=== PATIENT | female | born 1980 | race Caucasian/White ===

== ENCOUNTER 2021-01-11 15:27 | Emergency (ER) | payer MEDICARE, MEDICAID ==
[~2021-01-11] VITALS: Ht 162.6 cm; Wt 86.3 kg
[~2021-01-11 15:27] MED LIST: CLON-528 PO; DOXY-8 PO; LITH300C43 PO; SENN1TAB72 PO; ZIPR80CA2 PO; ZOF4T PO; ZOLP10TA5 PO
[2021-01-11 16:38] LABS: BASOPHILS # (AUTO) 0.1 X10'3 (0-0.2); BASOPHILS % (AUTO) 0.7 % (0-1); EOSINOPHILS # (AUTO) 0.2 X10'3 (0-0.9); EOSINOPHILS % (AUTO) 2.3 % (0-6); HEMATOCRIT 38.8 % (35.0-45.0); HEMOGLOBIN 12.9 g/dl (12.0-16.0); LYMPHOCYTES # (AUTO) 2.5 X10'3 (1.1-4.8); LYMPHOCYTES % (AUTO) 32.6 % (21-51); MEAN CORPUSCULAR HEMOGLOBIN 28.8 PG (27.0-31.0); MEAN CORPUSCULAR HGB CONC 33.3 g/dL (33.0-36.5); MEAN CORPUSCULAR VOLUME 86.4 FL (78-98); MEAN PLATELET VOLUME 7.6 FL (7.4-10.4); MONOCYTES # (AUTO) 0.7 X10'3 (0-0.9); MONOCYTES % (AUTO) 8.9 % (2-12); NEUTROPHILS # (AUTO) 4.3 X10'3 (1.8-7.7); NEUTROPHILS % (AUTO) 55.5 % (42-75); PLATELET COUNT 311 X10'3 (140-440); RED CELL DISTRIBUTION WIDTH 16.6 % (11.5-14.5); WHITE BLOOD COUNT 7.8 X10'3 (4.5-11.0)
[2021-01-11 16:54] LABS: ALANINE AMINOTRANSFERASE 24 U/L (12-78); ALBUMIN 3.8 G/DL (3.4-5.0); ALKALINE PHOSPHATASE 103 IU/L (46-116); ANION GAP 8 (8-16); ASPARTATE AMINO TRANSFERASE 16 U/L (10-37); BILIRUBIN,TOTAL 0.2 MG/DL (0.1-1.0); BLOOD UREA NITROGEN 8 MG/DL (7-18); BUN/CREATININE RATIO 10.7 (6.6-38.0); CALCIUM 9.3 MG/DL (8.5-10.1); CHLORIDE 106 MMOL/L (99-107); CREATININE 0.75 MG/DL (0.40-0.90); ETHANOL < 0.010 GM/DL (0.0-0.010); GLUCOSE 98 MG/DL (70-104); POTASSIUM 4.5 MMOL/L (3.5-5.1); SODIUM 140 MMOL/L (135-145); TOTAL PROTEIN 7.6 G/DL (6.4-8.2); eGFR 85 ML/MIN
[2021-01-11] MEDS ORDERED: OLAN5TAB26 PO (17:19)
[2021-01-11] MEDS ORDERED: FAMO20TA8 PO (17:19)
[2021-01-11] MEDS ORDERED: ZIPR40CA14 PO (17:19)
[2021-01-11] MEDS ORDERED: LEVO88TA7 PO (17:19)
[2021-01-11] MEDS ORDERED: LEVE750T PO (17:19)
[2021-01-11] MEDS ORDERED: CLON0.1T2 PO (17:23)
[2021-01-11] MEDS ORDERED: BUSP-29 PO (17:23)
[2021-01-11] MEDS ORDERED: BUSP15TA7 PO (17:23)
[2021-01-11 17:26] LABS: URINE HCG NEGATIVE (NEG)
[2021-01-11 17:28] LABS: CLARITY,URINE CLEAR (Clear); COLOR,URINE YELLOW (Yellow); GLUCOSE, URINE NEGATIVE (Neg); KETONES,URINE TRACE mg/dl (Neg); LEUKOCYTE ESTERASE ,URINE NEGATIVE (Neg); NITRITES, URINE NEGATIVE (Neg); OCCULT BLOOD,URINE NEGATIVE (Neg); PH,URINE 5.5 (4.8-8.0); PROTEIN,URINE NEGATIVE (Neg)
[2021-01-11 17:39] LABS: UA COLLECTION TYPE CLN CATCH MIDSTREAM
[2021-01-11 17:42] LABS: URINE AMPHETAMINE SCREEN NEGATIVE (Neg); URINE BARBITUATE SCREEN NEGATIVE (Neg); URINE BENZODIAZEPINES SCREEN NEGATIVE (Neg); URINE CANNABINOID SCREEN NEGATIVE (Neg); URINE COCAINE SCREEN NEGATIVE (Neg); URINE METHADONE SCREEN NEGATIVE (Neg); URINE OPIATE SCREEN NEGATIVE (Neg); URINE PHENCYCLIDINE SCREEN NEGATIVE (Neg)
--- NOTE | 2021-01-11 18:01 | NUR ---
FAXED PACKET TO [facility]
--- NOTE | 2021-01-11 18:52 | NUR ---
The patient was moved to bed 21 from the main ER. She is a [facility] client from [facility] who was directed to come here. She stated that she is hearing constant voices telling her to harm herself and others. She has a history of schizophrenia, borderline personality disorder, and bipolar disorder. She is cooperative but histrionic. She lives in a board and care in [place].
[2021-01-11] MEDS: ziprasidone 20mg capsule PO SCH (19:15)
[2021-01-11] MEDS: levetiracetam 250mg tablet PO SCH (19:15)
--- NOTE | 2021-01-11 19:32 | NUR ---
PT IS AWAKE STANDING AT BEDSIDE STARING OUT ACROSS THE UNIT. PT STATES SHE IS HEARING VIOCES AND IS GIVEN HS MEDICATIONS. PT ENCOURAGED TO SIT DOWN AND HAVE A SNACK, WHICH SHE DOES.
--- NOTE | 2021-01-11 20:14 | NUR ---
The patient reported to [facility] optical worker that she would attempt to kill herself in the bathroom so staff will have have to be with her in the bathroom.
[2021-01-11] MEDS: cloNIDine 0.1 mg tablet PO SCH (20:23)
[2021-01-11] MEDS ORDERED: OLANZAPINE 5 MG TABLET PO SCH (21:00)
[2021-01-11] MEDS ORDERED: busPIRone 15mg tablet PO SCH (21:00)
[2021-01-11] MEDS ORDERED: olanzapine 10mg tablet PO ONE (21:25)
[2021-01-11] MEDS ORDERED: OLANZAPINE 5 MG TABLET PO ONE (21:30)
--- NOTE | 2021-01-11 21:46 | NUR ---
PT STATES SHE IS UNABLE TO FALL ASLEEP AND IS ASKING FOR SOMETHING TO HELP. CONSULTED, 5MG ZYPREXA PO ORDERED AND GIVEN WITH GOOD EFFECT.
--- NOTE | 2021-01-12 | NUR ---
PT SLEEPING ON BACK RR 16
--- NOTE | 2021-01-12 02:04 | NUR ---
PT ON L SIDE, RR 14 EVEN AND UNLABORED
--- NOTE | 2021-01-12 04:49 | NUR ---
PT RESTING QUIETLY IN BED RR 16
--- NOTE | 2021-01-12 06:36 | NUR ---
Patient laying on her left side sleeping. Respirations are even and unlabored.
[2021-01-12] MEDS ORDERED: levoTHYROXINE 88mcg tablet PO SCH (08:00)
[2021-01-12] MEDS ORDERED: famotidine 20mg tablet PO SCH (08:00)
[2021-01-12] MEDS ORDERED: busPIRone 5mg tablet PO SCH (08:00)
[2021-01-12] MEDS: ziprasidone 20mg capsule PO SCH (08:51)
[2021-01-12] MEDS: cloNIDine 0.1 mg tablet PO SCH (08:51)
[2021-01-12] MEDS: levetiracetam 250mg tablet PO SCH (08:51)
--- NOTE | 2021-01-12 09:51 | NUR ---
Patient sleeping on right side in bed. Respirations are even and unlabored.
--- NOTE | 2021-01-12 11:49 | NUR ---
Pt. is being discharged to [facility] escorted by Jurgen and it security project manager.
[2021-01-12 12:29] VITALS: BP 134/90
[2021-01-12] MEDS ORDERED: FAMO20TA8 PO (17:34)
[2021-01-12] MEDS ORDERED: PALI6TAB PO (17:34)
[2021-01-12] MEDS ORDERED: PALI9TAB PO (17:34)
== END 2021-01-12 12:33 ==
LOC: ER 15:28
DX: R45.851 Suicidal ideations (principal); R45.850 Homicidal ideations; F31.9 Bipolar disorder, unspecified; F20.9 Schizophrenia, unspecified; Z98.51 Tubal ligation status; Z88.2 Allergy status to sulfonamides; Z88.0 Allergy status to penicillin; Z88.5 Allergy status to narcotic agent; Z88.1 Allergy status to other antibiotic agents; Z91.040 Latex allergy status; Z91.013 Allergy to seafood; Z91.018 Allergy to other foods; Z88.8 Allergy status to other drugs, medicaments and biological substances; Z79.899 Other long term (current) drug therapy
CPT/HCPCS: 36415; 80053; 80305; 80320; 81003; 81025; 85025; 87426; 99285

== ENCOUNTER 2024-07-07 10:32 | Emergency (ER) | payer BC, MEDICAID ==
[~2024-07-07] VITALS: Ht 162.6 cm; Wt 85.9 kg
[~2024-07-07 10:32] MED LIST changes: +BENZ1TAB78 PO; +BUSP-29 PO; +BUSP15TA7 PO; -CLON-528 PO; +CLON0.1T2 PO; +CLOZ25TA12 PO; -DOXY-8 PO; +FAMO20TA8 PO; +LEVE750T PO; +LEVO88TA7 PO; -LITH300C43 PO; +NICO-668 BC; +NICO-687 TD; +PRAZ1CAP5 PO; -SENN1TAB72 PO; -ZIPR80CA2 PO; -ZOF4T PO; -ZOLP10TA5 PO
[2024-07-07 11:16] LABS: BASOPHILS % (AUTO) 0.6 % (0-1); EOSINOPHILS % (AUTO) 0.9 % (0-6); HEMATOCRIT 42.2 % (35.0-45.0); HEMOGLOBIN 14.1 g/dl (12.0-16.0); LYMPHOCYTES # (AUTO) 1.7 X10'3 (1.1-4.8); LYMPHOCYTES % (AUTO) 34.6 % (21-51); MEAN CORPUSCULAR HEMOGLOBIN 31.5 PG (27.0-31.0); MEAN CORPUSCULAR HGB CONC 33.5 g/dL (33.0-36.5); MEAN CORPUSCULAR VOLUME 94.1 FL (78-98); MEAN PLATELET VOLUME 7.8 FL (7.4-10.4); MONOCYTES # (AUTO) 0.4 X10'3 (0-0.9); MONOCYTES % (AUTO) 7.8 % (2-12); NEUTROPHILS # (AUTO) 2.8 X10'3 (1.8-7.7); NEUTROPHILS % (AUTO) 56.1 % (42-75); PLATELET COUNT 255 X10'3 (140-440); RED BLOOD COUNT 4.48 X10'6 (4.20-5.60); RED CELL DISTRIBUTION WIDTH 13.6 % (11.5-14.5); WHITE BLOOD COUNT 4.9 X10'3 (4.5-11.0)
[2024-07-07 11:19] LABS: URINE HCG NEGATIVE (NEG)
[2024-07-07 11:29] LABS: ALANINE AMINOTRANSFERASE 33 U/L (12-78); ALBUMIN 3.8 G/DL (3.4-5.0); ALBUMIN/GLOBULIN RATIO 1.1 (1.1-1.5); ALKALINE PHOSPHATASE 93 IU/L (46-116); ANION GAP 8 (8-16); ASPARTATE AMINO TRANSFERASE 23 U/L (10-37); BILIRUBIN,TOTAL 0.3 MG/DL (0.1-1.0); BLOOD UREA NITROGEN 10 MG/DL (7-18); BUN/CREATININE RATIO 11.6 (10.0-20.0); CALCIUM 9.2 MG/DL (8.5-10.1); CHLORIDE 106 MMOL/L (99-107); CREATININE 0.86 MG/DL (0.40-0.90); GLUCOSE 135 MG/DL (70-104); LIPASE 45 U/L (16-77); POTASSIUM 4.3 MMOL/L (3.5-5.1); SODIUM 139 MMOL/L (135-145); TOTAL CARBON DIOXIDE 25.3 MMOL/L (24-32); TOTAL PROTEIN 7.4 G/DL (6.4-8.2); eCRCL 71 ML/MIN; eGFR 71 ML/MIN
[2024-07-07 11:50] LABS: BILIRUBIN,URINE NEGATIVE (Neg); CLARITY,URINE SLIGHTLY CLOUDY (Clear); COLOR,URINE YELLOW (Yellow); GLUCOSE, URINE NEGATIVE (Neg); KETONES,URINE NEGATIVE (Neg); LEUKOCYTE ESTERASE ,URINE NEGATIVE (Neg); NITRITES, URINE NEGATIVE (Neg); OCCULT BLOOD,URINE NEGATIVE (Neg); PROTEIN,URINE NEGATIVE (Neg); UROBILINOGEN,URINE 0.2 E.U/dL (0.2-1.0)
[2024-07-07 11:56] LABS: UA COLLECTION TYPE CLN CATCH MIDSTREAM
[2024-07-07 11:57] LABS: BACTERIA,URINE 3+ /HPF (Neg); SQUAMOUS EPITHELIAL CELL,UR MANY /LPF (FEW)
[2024-07-07 11:58] LABS: RBC,URINE 0-2 /HPF (0-2)
[2024-07-07] MEDS ORDERED: metoclopramide 5 mg/ml inj IV ONE (14:15)
[2024-07-07] MEDS ORDERED: morphine 2 MG/ML inj. syringe IV ONE (14:15)
[2024-07-07] MEDS ORDERED: ondansetron/PF 4mg/2ml inj IV ONE (14:45)
[2024-07-07] MEDS: normal saline 1000ml 1,000 ML IV ONE (15:00)
[2024-07-07] MEDS: ketorolac trometh 15mg/ml vial 15 MG/ML ML IV ONE (15:06)
[2024-07-07] MEDS: metoclopramide 5 mg/ml inj IV ONE (15:39)
[2024-07-07] MEDS: morphine 4 MG/ML inj SYRINge IV ONE (17:11)
[2024-07-07 18:28] VITALS: BP 116/64; PULSE 84; RESP 16; TEMP 97.8; O2SAT 98
== END 2024-07-07 18:30 | disposition home or self-care (01) ==
LOC: ER 10:32
DX: R10.84 Generalized abdominal pain (principal); F20.9 Schizophrenia, unspecified; F31.9 Bipolar disorder, unspecified; Z88.2 Allergy status to sulfonamides; Z88.6 Allergy status to analgesic agent; Z88.5 Allergy status to narcotic agent; Z88.0 Allergy status to penicillin; Z88.1 Allergy status to other antibiotic agents; Z91.040 Latex allergy status; Z98.51 Tubal ligation status
CPT/HCPCS: 36415; 74176; 80053; 81001; 81025; 83690; 85025; 96361; 96374; 96375; 99285; J1885; J2270; J2765; J7030

== ENCOUNTER 2024-11-19 12:39 | Emergency (ER) | payer MEDICARE, MEDICAID ==
[~2024-11-19] VITALS: Ht 162.6 cm; Wt 88.6 kg
[~2024-11-19 12:39] MED LIST changes: +DICY10CA88 PO; +DOXY100C43 PO; +ONDA-243 PO
[2024-11-19 13:09] VITALS: BP 106/68; PULSE 69; RESP 18; TEMP 97.6; O2SAT 95
[2024-11-20] MEDS ORDERED: FLUC100T PO (11:15)
== END 2024-11-19 15:48 | disposition left against medical advice (07) ==
LOC: ER 12:39
DX: R11.0 Nausea (principal); Z88.0 Allergy status to penicillin; Z91.010 Allergy to peanuts; Z88.2 Allergy status to sulfonamides; Z91.040 Latex allergy status; Z91.018 Allergy to other foods; Z91.011 Allergy to milk products; Z91.013 Allergy to seafood; Z88.8 Allergy status to other drugs, medicaments and biological substances; Z53.21 Procedure and treatment not carried out due to patient leaving prior to being seen by health care provider

== ENCOUNTER 2024-11-20 07:36 | Emergency (ER) | payer MEDICARE, MEDICAID ==
[~2024-11-20] VITALS: Ht 162.6 cm; Wt 87.5 kg
[2024-11-20 07:41] VITALS: BP 113/75; PULSE 84; RESP 16; O2SAT 96
[2024-11-20] MEDS: fluconazole 100mg tablet PO ONE (08:14)
[2024-11-20 08:37] LABS: BASOPHILS % (AUTO) 0.7 % (0-1); EOSINOPHILS # (AUTO) 0.1 X10'3 (0-0.9); EOSINOPHILS % (AUTO) 2.1 % (0-6); HEMATOCRIT 42.5 % (35.0-45.0); HEMOGLOBIN 14.5 g/dl (12.0-16.0); LYMPHOCYTES # (AUTO) 1.6 X10'3 (1.1-4.8); LYMPHOCYTES % (AUTO) 24.3 % (21-51); MEAN CORPUSCULAR HGB CONC 34.1 g/dL (33.0-36.5); MEAN CORPUSCULAR VOLUME 93.9 FL (78-98); MEAN PLATELET VOLUME 8.2 FL (7.4-10.4); MONOCYTES # (AUTO) 0.5 X10'3 (0-0.9); MONOCYTES % (AUTO) 7.5 % (2-12); NEUTROPHILS # (AUTO) 4.3 X10'3 (1.8-7.7); NEUTROPHILS % (AUTO) 65.4 % (42-75); PLATELET COUNT 207 X10'3 (140-440); RED BLOOD COUNT 4.53 X10'6 (4.20-5.60); WHITE BLOOD COUNT 6.6 X10'3 (4.5-11.0)
[2024-11-20 08:54] LABS: STREP A SCREEN NEGATIVE (Neg)
[2024-11-20 08:55] LABS: ALANINE AMINOTRANSFERASE 17 U/L (12-78); ALBUMIN 3.8 G/DL (3.4-5.0); ALKALINE PHOSPHATASE 93 IU/L (46-116); ANION GAP 10 (8-16); ASPARTATE AMINO TRANSFERASE 16 U/L (10-37); BILIRUBIN,TOTAL 0.3 MG/DL (0.1-1.0); BLOOD UREA NITROGEN 10 MG/DL (7-18); BUN/CREATININE RATIO 14.5 (10.0-20.0); CALCIUM 9.4 MG/DL (8.5-10.1); CHLORIDE 106 MMOL/L (99-107); CREATININE 0.69 MG/DL (0.40-0.90); GLUCOSE 124 MG/DL (70-104); SODIUM 140 MMOL/L (135-145); TOTAL CARBON DIOXIDE 24.4 MMOL/L (24-32); TOTAL PROTEIN 7.5 G/DL (6.4-8.2); eCRCL 89 ML/MIN; eGFR > 90 ML/MIN
[2024-11-20 09:50] LABS: HIV ANTIBODY 1&2 RAPID NON-REACTIVE (Neg)
[2024-11-20] MEDS ORDERED: FLUC100T PO (11:15)
[2024-11-20 11:22] VITALS: TEMP 97.9
== END 2024-11-20 11:27 | disposition home or self-care (01) ==
LOC: ER 07:37
DX: B37.0 Candidal stomatitis (principal); B37.81 Candidal esophagitis; F20.9 Schizophrenia, unspecified; F31.9 Bipolar disorder, unspecified; Z88.0 Allergy status to penicillin; Z88.2 Allergy status to sulfonamides; Z88.5 Allergy status to narcotic agent; Z88.6 Allergy status to analgesic agent; Z88.1 Allergy status to other antibiotic agents; Z20.822 Contact with and (suspected) exposure to COVID-19; Z98.51 Tubal ligation status
CPT/HCPCS: 36415; 80053; 85025; 86703; 87081; 87502; 87503; 87811; 87880; 99283

== ENCOUNTER 2024-11-26 13:09 | Emergency (ER) | payer MEDICARE, MEDICAID ==
[~2024-11-26] VITALS: Ht 162.6 cm; Wt 80.2 kg
[~2024-11-26 13:09] MED LIST changes: +FLUC100T PO
[2024-11-26 13:19] VITALS: BP 120/72; PULSE 62; RESP 18; TEMP 97.8; O2SAT 97
[2024-11-26] MEDS ORDERED: OLAN1TAB7 PO (14:02)
== END 2024-11-26 14:08 | disposition home or self-care (01) ==
LOC: ER 13:09
DX: Z00.00 Encounter for general adult medical examination without abnormal findings (principal); Z76.0 Encounter for issue of repeat prescription; F20.9 Schizophrenia, unspecified; F31.9 Bipolar disorder, unspecified; Z88.0 Allergy status to penicillin; Z88.1 Allergy status to other antibiotic agents; Z88.2 Allergy status to sulfonamides; Z88.3 Allergy status to other anti-infective agents; Z88.5 Allergy status to narcotic agent; Z88.6 Allergy status to analgesic agent; Z98.51 Tubal ligation status
CPT/HCPCS: 99281

== ENCOUNTER 2025-01-24 07:35 | Inpatient (IN) | payer MEDICARE, MEDICAID ==
[~2025-01-24] VITALS: Ht 162.6 cm; Wt 84.7 kg
[~2025-01-24 07:35] MED LIST changes: -FLUC100T PO; +OLAN1TAB7 PO
[2025-01-24] MEDS ORDERED: loperamide 2mg capsule PO PRN (09:35)
[2025-01-24] MEDS ORDERED: acetaminophen 325mg tablet PO PRN (09:35)
[2025-01-24] MEDS ORDERED: mag hydrox/Alum hydrox/simeth 30ml oral suspension PO PRN (09:35)
[2025-01-24 12:04] VITALS: BP 110/59; PULSE 50; RESP 16; TEMP 97.2; O2SAT 97
[2025-01-24] MEDS ORDERED: BUSP5TAB3 PO (12:06)
[2025-01-24] MEDS ORDERED: LEVO50TA PO (12:06)
[2025-01-24] MEDS ORDERED: LURA40TA2 PO ×2 (12:06→12:42)
[2025-01-24] MEDS ORDERED: PRAZ5CAP2 PO (12:06)
[2025-01-24] MEDS ORDERED: RISP1TAB69 PO (12:06)
[2025-01-24] MEDS: LORazepam 1 MG tablet PO ONE (13:24)
[2025-01-24] MEDS: haloperidol 5mg tablet PO ONE (13:24)
[2025-01-24] MEDS: diphenhydrAMINE 25mg capsule PO ONE (13:26)
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
[2025-01-24 18:24] VITALS: RESP 14; O2SAT 97
[2025-01-24 19:15] VITALS: RESP 14; O2SAT 97
[2025-01-24 19:52] VITALS: RESP 16
[2025-01-24] MEDS: prazosin 5mg capsule PO SCH (21:00)
[2025-01-24] MEDS: busPIRone 5mg tablet PO SCH (21:08)
[2025-01-24] MEDS: levetiracetam 250mg tablet PO SCH (21:08)
[2025-01-24] MEDS: risperiDONE 0.5mg tablet PO SCH (21:09)
[2025-01-24] MEDS: lurasidone 20mg tablet PO SCH (21:09)
[2025-01-25 07:31] VITALS: BP 111/54; PULSE 62; RESP 15; TEMP 96.8; O2SAT 97
[2025-01-25 08:00] LABS: BASOPHILS # (AUTO) 0.1 X10'3 (0-0.2); BASOPHILS % (AUTO) 1.1 % (0-1); EOSINOPHILS # (AUTO) 0.1 X10'3 (0-0.9); EOSINOPHILS % (AUTO) 2.7 % (0-6); HEMATOCRIT 39.7 % (35.0-45.0); HEMOGLOBIN 13.5 g/dl (12.0-16.0); LYMPHOCYTES # (AUTO) 2.4 X10'3 (1.1-4.8); LYMPHOCYTES % (AUTO) 47.5 % (21-51); MEAN CORPUSCULAR HEMOGLOBIN 31.6 PG (27.0-31.0); MEAN CORPUSCULAR VOLUME 92.8 FL (78-98); MEAN PLATELET VOLUME 8.1 FL (7.4-10.4); MONOCYTES # (AUTO) 0.4 X10'3 (0-0.9); MONOCYTES % (AUTO) 8.8 % (2-12); NEUTROPHILS % (AUTO) 39.9 % (42-75); PLATELET COUNT 220 X10'3 (140-440); RED BLOOD COUNT 4.28 X10'6 (4.20-5.60); RED CELL DISTRIBUTION WIDTH 13.4 % (11.5-14.5)
[2025-01-25 08:31] LABS: ALANINE AMINOTRANSFERASE 18 U/L (12-78); ALBUMIN 3.3 G/DL (3.4-5.0); ALBUMIN/GLOBULIN RATIO 1.1 (1.1-1.5); ALKALINE PHOSPHATASE 84 IU/L (46-116); ANION GAP 7 (8-16); ASPARTATE AMINO TRANSFERASE 12 U/L (10-37); BILIRUBIN,TOTAL 0.4 MG/DL (0.1-1.0); BLOOD UREA NITROGEN 11 MG/DL (7-18); BUN/CREATININE RATIO 14.9 (10.0-20.0); CALCIUM 8.7 MG/DL (8.5-10.1); CHLORIDE 109 MMOL/L (99-107); CHOL/HDL RATIO 3.4 (0.00-4.99); CHOLESTEROL 207 MG/DL (0-200); CREATININE 0.74 MG/DL (0.40-0.90); GLUCOSE 95 MG/DL (70-104); HDL CHOLESTEROL 61 MG/DL (35-60); LDL CHOLESTEROL 124 MG/DL (50-100); POTASSIUM 4.3 MMOL/L (3.5-5.1); SODIUM 142 MMOL/L (135-145); TOTAL CARBON DIOXIDE 25.6 MMOL/L (24-32); TOTAL PROTEIN 6.2 G/DL (6.4-8.2); TRIGLYCERIDES 70 MG/DL (20-135); eCRCL 82 ML/MIN; eGFR 84 ML/MIN
[2025-01-25] MEDS: levoTHYROXINE 25mcg tablet PO SCH (09:23)
[2025-01-25] MEDS: magnesium hydroxide 30ml (MOM) UD suspension PO PRN (09:30)
[2025-01-25] MEDS: acetaminophen 325mg tablet PO PRN (09:32)
[2025-01-25 09:35] VITALS: RESP 15; O2SAT 97
[2025-01-25 09:39] LABS: HEMOGLOBIN A1C 5.1 % (4.5-6.2)
[2025-01-25] MEDS: nicotine 14mg patch - 24hr TD ONE (13:05)
--- NOTE | 2025-01-25 13:09 | HISTORY AND PHYSICAL ---
History & Physical Providers to CC ~ History of Present Illness Reason for Admit\Complaint: SI, bipolar disorder History of Present Illness Iveth Lindsey is a 45-year-old female with a past medical history of schizophrenia, bipolar disorder, developmental delay, PTSD, seizure disorder who was admitted to [facility] for management of suicidal ideation/attempt. Patient denies HI, prior SD/CAD, CVA, cardiac arrhythmia, DVT/PE, or GIB. Patient reports dysuria x2 days and on-going suicidal ideation but denies chest pain, palpitations, shortness of breath, abdominal pain, n/v/d. Allergies: Coded Allergies: Sulfa (Sulfonamide Antibiotics) (Verified Allergy, Severe, 11/26/24) kiwi (Verified Allergy, Severe, anaphylaxis, 11/19/24) loratadine (Verified Allergy, Severe, anaphylaxis, 11/19/24) shellfish derived (Verified Allergy, Severe, anaphylaxis, 11/19/24) strawberry (Verified Allergy, Severe, anaphylaxis, 11/19/24) codeine (Verified Allergy, Intermediate, Hives, 01/24/25) divalproex sodium (Verified Allergy, Intermediate, pruritus, 11/19/24) lactose (Verified Allergy, Intermediate, Diarrhea, 11/19/24) nitrofurantoin (Verified Allergy, Intermediate, Rash, 01/24/25) ondansetron (Verified Allergy, Intermediate, Rash, 01/24/25) Penicillins (Verified Allergy, Unknown, 11/19/24) PT TOLERATED CEFTRIAXONE 01/2013 hydroxyzine (Verified Allergy, Unknown, 11/19/24) latex (Verified Allergy, Unknown, 11/19/24) levofloxacin (Verified Allergy, Unknown, 11/19/24) Uncoded Allergies: ASA (Allergy, Severe, Anaphylaxis, 01/24/25) MILK PRODUCTS (Allergy, Unknown, 01/12/21) tape, adhesive (Adverse Reaction, Unknown, 01/24/25) Home Medications Home Medications Active Reported Latuda (Lurasidone HCl) 40 Mg Tablet 1 Tab PO QPM Buspar* (Buspirone HCl) 5 Mg Tablet 1 Tab PO TID Risperidone 1 Mg Tab.rapdis 1 Tab PO BID Prazosin HCl 5 Mg Capsule 3 Cap PO HS Synthroid (Levothyroxine Sodium) 50 Mcg Tablet 1 Tab PO DAILY Levetiracetam 750 Mg Tablet 1 Tab PO BID Past Medical History Past Medical History Bipolar disorder Developmental delay Seizure disorder Scoliosis Hirsutism Past Surgical History Surgical History Comment Tubal ligation Family History Family History: Developmental delay FAMILY/OTHER, Onset:Pre- FH: COPD (chronic obstructive pulmonary disease) FH: asthma MOTHER, Onset:Unknown FH: diabetes mellitus MOTHER, Onset:Unknown GRANDFATHER OR GRANDMOTHER, Onset:Unknown FH: glaucoma MOTHER, Onset:Unknown GRANDFATHER OR GRANDMOTHER, Onset:Unknown FH: hypercholesterolemia FAMILY/OTHER, Onset:Unknown FH: kidney failure MOTHER, Onset:50's - 60 Heart murmur MOTHER, Onset:Unknown Paranoid schizophrenia MOTHER, Onset:Pre- GRANDFATHER OR GRANDMOTHER, Onset:Pre- Suicide attempt MOTHER, Onset:15's - 20 Past Social History Social History Comment Alcohol: Denies Tobacco: Current smoker, 32-pack year history Illicit drug use: Denies Living situation: Lives at correction ROS ROS Other than positives in HPI, all 14 review of systems are negative Exam Vitals: Vital Signs Date Time Temp Pulse Resp B/P (MAP) Pulse Ox O2 Delivery O2 Flow Rate FiO2 01/25/25 09:35 15 97 Room Air 01/25/25 07:31 96.8 62 111/54 (73) General: A&Ox 3, NAD HEENT: Normocephalic, PERRLA, poor dentition Neck: Supple, trachea midline, no JVD Chest: Clear to auscultation bilaterally Cardiovascular: RRR, S1&S2 Abdomen: Soft and nontender Extremities: No cyanosis/clubbing/or edema Central Nervous System: CN II-XII intact, no focal deficits Musculoskeletal: No paraspinal muscle tenderness, no muscle spasm Skin: Warm and intact Diagnostic Data Last Recorded Lab Results: 01/25/25 0732 01/25/25 0732 Counseling Services Smoking & Tobacco Cessation: > 10 Minutes Additional Plan # Suicide ideation # Bipolar disorder # Schizophrenia # PTSD -continue management per psychiatry service -vss, labs including UA unremarkable # HLD, ASCVD 2.0% -heart healthy diet # Hx Hirsutism -follow testosterone, DHEA sul, LH/FSH, cortisol # Hypothyroidism -TSH/T4 wnl; continue home levothyroxine # Seizure disorder -continue home Keppra, follow serum level # Nicotine dependence -nicotine patch # Hx tubal ligation Hospitalist team will continue to follow for patient's medical needs I spent a total of 16 minutes on smoking cessation education. I provided extensive counseling regarding smoking cessation. Date of Service: January 25, 2025 Billing Provider: ANNETTE ANDERSEN Common Visit Codes: [id number] INP/OBS CARE (HIGH) Secondary Visit Codes: [id number] CHNG SMOKING >10MIN NANETTE ANDERSEN January 25, 2025 13:09
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
[2025-01-25] MEDS: busPIRone 5mg tablet PO SCH ×2 (14:49→20:54)
[2025-01-25] MEDS: busPIRone 5mg tablet PO ONE (14:55)
[2025-01-25 15:35] LABS: BILIRUBIN,URINE NEGATIVE (Neg); CLARITY,URINE CLEAR (Clear); COLOR,URINE YELLOW (Yellow); GLUCOSE, URINE NEGATIVE (Neg); KETONES,URINE NEGATIVE (Neg); LEUKOCYTE ESTERASE ,URINE NEGATIVE (Neg); NITRITES, URINE NEGATIVE (Neg); OCCULT BLOOD,URINE NEGATIVE (Neg); PROTEIN,URINE NEGATIVE (Neg); UROBILINOGEN,URINE 0.2 E.U/dL (0.2-1.0)
[2025-01-25 15:40] LABS: UA COLLECTION TYPE CLN CATCH MIDSTREAM
[2025-01-25 15:42] LABS: FREE T4 (FREE THYROXINE) 1.04 NG/DL (0.73-1.40); THYROID STIMULATING HORMONE 0.55 ulU/ml (0.34-4.50)
[2025-01-25 19:00] VITALS: BP 125/74; PULSE 80; RESP 16; TEMP 97.4; O2SAT 97
[2025-01-25] MEDS ORDERED: levetiracetam 250mg tablet PO SCH (20:00)
[2025-01-25] MEDS: risperiDONE 2mg tablet PO SCH (20:54)
[2025-01-25] MEDS: traZODone 50mg tablet PO PRN (20:55)
[2025-01-26 07:00] VITALS: BP 110/65; PULSE 72; RESP 16; TEMP 97; O2SAT 98
[2025-01-26] MEDS ORDERED: levoTHYROXINE 25mcg tablet PO SCH (07:00)
[2025-01-26 07:45] VITALS: RESP 15; O2SAT 97
[2025-01-26] MEDS: nicotine 14mg patch - 24hr TD SCH (07:47)
[2025-01-26] MEDS: chlorproMAZINE 25mg tablet PO PRN (10:14)
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
[2025-01-26] MEDS: diphenhydrAMINE 25mg capsule PO ONE (11:43)
[2025-01-26 19:00] VITALS: RESP 14; O2SAT 97
[2025-01-26 20:00] VITALS: BP 118/66; PULSE 60; RESP 14; TEMP 97.1; O2SAT 97
[2025-01-26] MEDS: lurasidone 20mg tablet PO SCH (20:09)
[2025-01-27 07:00] VITALS: RESP 16; O2SAT 95
[2025-01-27 07:19] VITALS: BP 112/60; PULSE 66; RESP 16; TEMP 97.9; O2SAT 95
--- NOTE | 2025-01-27 09:53 | PROGRESS NOTE ---
Daily Progress Note Providers to CC No new complaint today, resting comfortably in the bed ~ Central Line/PICC still needed: No Renteria-Non Protocol Renteria Indications Met/Not Met: F/C Indications Not Met Antibiotic Timeout Antibiotic Ordered?: No MRSA Education MRSA Education Provided to pt: No Subjective As above Objective Vital Signs Date Time Temp Pulse Resp B/P (MAP) Pulse Ox O2 Delivery O2 Flow Rate FiO2 01/27/25 07:19 97.9 66 16 112/60 (77) 95 Room Air Vital signs, stable ,afebrile. Pulse Oximetry reflects adequate oxygenation. BMI is thirty-two, weight 84 kg General: well developed, well nourished. Awake , alert, and oriented x4, resting comfortably in the bed, in no acute distress . Skin: Warm, dry, no pallor, no rash or petechiae. HEENT: Atraumatic, normocephalic, EOMI, anicteric sclera B; pink conjunctiva; PERRLA, normal oropharynx, moist oral and nasal mucosa. Tympanic membrane , nose , throat clear. Neck: Trachea midline. Supple, full range of motion, no JVD, bruit , hepatojugular reflex , lymphadenopathy or masses, or other lesions Cardiac: Regular rhythm, regular rate no murmurs, rubs, or gallops. Normal S1 and S2, no S3 noticed. PMI is normal. Respiratory: Equal breath sounds bilaterally, no tachypnea; lungs clear to auscultation bilaterally, no wheezing ,rub or rales, or crackles. Chest wall is symmetric and without deformity. No signs of trauma. Chest wall is nontender. No signs of respiratory distress. Resonance is normal upon percussion bilaterally. Gastrointestinal: Abdomen symmetric, non-distended, soft, non-tender, normal bowel sounds x4 quadrant, normoactive, no hepatosplenomegaly , no masses , no bruit, no flank pain bilaterally. No voluntary guarding, rebound, or rigidity. No tenderness to percussion. No pulsatile masses. Equal femoral pulses. No Willis's sign or McBurney point tenderness. Back; no CVA tenderness bilaterally, no deformities. Neck and back are without deformity as well. No tenderness noted on palpation of the spinous processes. Spinous processes are midline. Cervical, thoracic, and lumbar paraspinal muscles are not tender and are without spasm. Musculoskeletal: Extremities, normal range of motion, non-tender, muscle strength 5/5 x 4. Negative Homans signs bilaterally on lower extremity. Distal pulses full symmetrical, no clubbing, cyanosis , edema. Neurological: Speech is clear, alert, and oriented x 4. No motor or sensory deficit, deep tendon reflexes normal, cerebellar intact. Cranial nerves II-XII intact. Psych: Alert and or appropriate, normal affect. Vascular: Good distal pulses, which are equal x4; capillary refill less than 2 seconds. Lymphatic, no lymphadenopathy. Result Diagram: 01/25/2573101/25/25731 Problem\Assessment\Plan Assessment/ Plan # Suicide ideation # Bipolar disorder # Schizophrenia # PTSD -continue management per psychiatry service -vss, labs including UA unremarkable # HLD, ASCVD 2.0% -heart healthy diet # Hx Hirsutism -follow testosterone, DHEA sul, LH/FSH, cortisol # Hypothyroidism -TSH/T4 wnl; continue home levothyroxine # Seizure disorder -continue home Keppra, follow serum level # Nicotine dependence -nicotine patch # Hx tubal ligation Hospitalist team we will follow patient per hospital protocol Sepsis Screening Reassessment Date: January 27, 2025 Date of Service: January 27, 2025 Billing Provider: LASHAE POWERS MD Common Visit Codes: [id number] INP/OBS CARE(LOW) LASHAE POWERS MD January 27, 2025 09:53
[2025-01-27 11:14] LABS: FSH, SERUM 40.7 mIU/mL (.); LUTEINIZING HORMONE 34.3 mIU/mL (.)
[2025-01-27] MEDS: diphenhydrAMINE 25mg capsule PO PRN (11:26)
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
[2025-01-27 19:40] VITALS: RESP 18; O2SAT 97
[2025-01-27 20:00] VITALS: BP 139/64; PULSE 58; RESP 18; TEMP 97.5; O2SAT 97
[2025-01-28 07:01] VITALS: BP 92/61; PULSE 73; RESP 18; TEMP 97.1; O2SAT 97
[2025-01-28 07:44] VITALS: RESP 18; O2SAT 97
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
[2025-01-28 19:00] VITALS: RESP 18; O2SAT 98
[2025-01-28 19:49] VITALS: BP 115/71; PULSE 76; RESP 18; TEMP 97.7; O2SAT 98
[2025-01-29 07:00] VITALS: BP 107/63; PULSE 68; RESP 16; TEMP 96.9; O2SAT 97
[2025-01-29 10:00] VITALS: RESP 16; O2SAT 97
[2025-01-29] MEDS: lactose-reduced food (Ensure Enlive) - 237ml bottle PO SCH (12:32)
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
[2025-01-29 19:00] VITALS: RESP 16; O2SAT 97
--- NOTE | 2025-01-29 19:07 | PROGRESS NOTE- Residence ---
Progress Note - Resident Providers to CC Resident Creating Document: KWASI TAYLOR CC: HARLEY DEL CASTILLO MD ~ Antibiotic Timeout Antibiotic Ordered?: No Subjective Patient was examined at bedside in [facility]. Patient reports history of psoriasis and uses triamcinolone on an as-needed basis Objective Vital Signs Date Time Temp Pulse Resp B/P (MAP) Pulse Ox O2 Delivery O2 Flow Rate FiO2 01/29/25 10:00 16 97 Room Air 01/29/25 07:00 96.9 68 107/63 (78) Result Diagram: 01/25/25 0732 01/25/25 0732 General: awake, alert oriented to place, time, and person HEENT: No pallor present, no icterus, moist mucous membranes Neck: No masses and tenderness Resp: Unlabored. Lungs clear to auscultation bilaterally. Heart: Regular Rate and rhythm, normal S1 and S2 without murmur, rub or gallop Abdomen: Soft and non tender no organomegaly, no guarding and rigidity, bowel sounds present Neuro: No weakness in the upper and lower limb muscles, power of the muscles 5/5 bilateral upper and lower muscles, knee reflex present bilaterally. Cranial nerves intact Extremities: No cyanosis,clubbing or edema Skin: Warm and Dry. No lesions Plan Plan Suicide ideation Bipolar disorder Schizophrenia PTSD Continue management per psychiatry service vss, labs including UA unremarkable Psoriasis Continue triamcinolone cream HLD, ASCVD 2.0% heart healthy diet Hx Hirsutism Pending testosterone Hypothyroidism TSH/T4 wnl; continue home levothyroxine Seizure disorder Continue home Keppra, follow serum level Nicotine dependence Nicotine patch Hx tubal ligation Most recent labs reviewed Hospitalist team we will follow patient per hospital protocol Kwasi Montanez MD Internal Medicine Resident PGY-1 Date of Service: January 29, 2025 Billing Provider: HARLEY DEL CASTILLO MD, LEONARDO LUIS January 29, 2025 19:07
[2025-01-29 20:00] VITALS: BP 114/62; PULSE 69; RESP 16; TEMP 98.1; O2SAT 97
[2025-01-29] MEDS: triamcinolone acet 0.1% cream 15gm TP SCH (20:33)
[2025-01-30 07:00] VITALS: RESP 16; O2SAT 70
[2025-01-30 08:00] VITALS: BP 104/64; PULSE 70; RESP 16; TEMP 97.6; O2SAT 98
[2025-01-30] MEDS ORDERED: BUSP5TAB26 PO ×2 (08:15→11:27)
[2025-01-30] MEDS ORDERED: TRAZ-251 PO (08:15)
[2025-01-30] MEDS ORDERED: PRAZ5CAP2 PO (08:15)
[2025-01-30] MEDS ORDERED: LURA20TA2 PO ×2 (08:15→11:29)
[2025-01-30] MEDS ORDERED: RISP-32 PO ×2 (08:15→11:29)
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
[2025-01-30 09:16] LABS: LEVETIRACETAM, S 23.4 ug/mL (10.0-40.0)
== END 2025-01-30 13:01 | disposition home or self-care (01) | DRG 885 ==
LOC: UNDOADMIN 10:33 → ADULT MH 10:33
PROVIDERS: ADMIT Psychiatry & Neurology Psychiatry; ATTEND Psychiatry & Neurology Psychiatry
PROC: GZHZZZZ Group Psychotherapy (ICD-10-PCS; principal; 2025-01-24)
PROC: GZ51ZZZ Individual Psychotherapy, Behavioral (ICD-10-PCS; 2025-01-24)
DX: F31.9 Bipolar disorder, unspecified (principal); R45.851 Suicidal ideations; F20.0 Paranoid schizophrenia; F43.10 Post-traumatic stress disorder, unspecified; F60.3 Borderline personality disorder; F17.200 Nicotine dependence, unspecified, uncomplicated; G40.909 Epilepsy, unspecified, not intractable, without status epilepticus; L68.0 Hirsutism; E03.9 Hypothyroidism, unspecified; Z91.040 Latex allergy status; Z91.041 Radiographic dye allergy status; Z88.5 Allergy status to narcotic agent; Z88.0 Allergy status to penicillin; Z91.013 Allergy to seafood; Z88.2 Allergy status to sulfonamides; Z88.8 Allergy status to other drugs, medicaments and biological substances; Z91.018 Allergy to other foods; Z83.3 Family history of diabetes mellitus
CPT/HCPCS: 36415; 80053; 80061; 80177; 81003; 83001; 83002; 83036; 84402; 84439; 84443; 85025; 87081; Q0161; Q0163